=== PATIENT | female | born 1990 | race Caucasian/White ===

== ENCOUNTER 2021-04-04 08:55 | Emergency (ER) | payer OTHER ==
[~2021-04-04] VITALS: Ht 154.9 cm; Wt 57.4 kg
[~2021-04-04 08:55] MED LIST: LIDOcaine 1% W/epiNEPHrine 1:100,000 20ml vial ONE
[2021-04-04 09:43] VITALS: BP 119/81
== END 2021-04-04 14:05 | disposition home or self-care (01) ==
LOC: ER 08:55
DX: S51.812A Laceration without foreign body of left forearm, initial encounter (principal); Z86.19 Personal history of other infectious and parasitic diseases; W45.8XXA Other foreign body or object entering through skin, initial encounter; Y93.89 Activity, other specified; Y92.89 Other specified places as the place of occurrence of the external cause; Y99.8 Other external cause status
CPT/HCPCS: 12002; 99282